=== PATIENT | female | born 1980 | race Caucasian/White ===

== ENCOUNTER → 2018-02-04 | Outpatient (CLI) | payer OTHER | LOC: YCFC.O 10:58 | PROVIDERS: ATTEND Nurse Practitioner Family | DX: R53.83 Other fatigue (principal); E03.9 Hypothyroidism, unspecified ==

== ENCOUNTER → 2018-08-13 | Outpatient (CLI) | payer OTHER ==
[~2018-08-13] MED LIST: cefTRIAXone SODIUM 1 GM VIAL IM ONE
== END ==
LOC: LAB.O 10:03
PROVIDERS: ATTEND Family Medicine
DX: R30.0 Dysuria (principal)

== ENCOUNTER → 2020-10-20 | Outpatient (CLI) | payer BC | LOC: YCFC.O 08:08 | PROVIDERS: ATTEND Family Medicine | DX: E55.9 Vitamin D deficiency, unspecified (principal); Z51.81 Encounter for therapeutic drug level monitoring ==

== ENCOUNTER → 2020-10-31 | Outpatient (CLI) | payer SELFPAY | LOC: YCFC.O 12:41 | PROVIDERS: ATTEND Family Medicine | DX: E80.6 Other disorders of bilirubin metabolism (principal); Z13.29 Encounter for screening for other suspected endocrine disorder ==